=== PATIENT | female | born 1970 | race Two or more races ===

== ENCOUNTER 2016-06-30 12:22 | Emergency (ER) | payer MEDICAID ==
[~2016-06-30] VITALS: Ht 162.6 cm; Wt 117.1 kg
[2016-06-30 17:13] LABS: PLATELET COUNT 321 x10^3mcL (130-400)
[2016-06-30 17:27] LABS: microscopic required? YES; urine erythrocyte 3+ (NEGATIVE)
[2016-06-30 17:28] LABS: BASOPHIL % 2.2 % (0-2)
[2016-06-30 18:59] VITALS: BP 147/101
== END 2016-06-30 18:59 | disposition home or self-care (01) ==
LOC: ED 12:22
PROVIDERS: Emergency Medicine
DX: O02.0 Blighted ovum and nonhydatidiform mole (principal); E11.9 Type 2 diabetes mellitus without complications
CPT/HCPCS: 82962; Q0092

== ENCOUNTER 2017-06-27 07:10 | Emergency (ER) | payer MEDICAID ==
[~2017-06-27] VITALS: Ht 162.6 cm; Wt 119.3 kg
[2017-06-27 07:17] VITALS: BP 143/84; Ht 162.6 cm; Wt 119.3 kg
== END 2017-06-27 09:14 | disposition home or self-care (01) ==
LOC: ED 07:10
DX: M54.5 Low back pain (principal); K21.9 Gastro-esophageal reflux disease without esophagitis; E11.9 Type 2 diabetes mellitus without complications; I10 Essential (primary) hypertension
CPT/HCPCS: 82962

== ENCOUNTER 2020-03-26 15:43 | Emergency (ER) | payer MEDICAID ==
[~2020-03-26] VITALS: Ht 162.6 cm; Wt 108.4 kg
[2020-03-26 15:55] VITALS: Ht 162.6 cm; Wt 108.4 kg
[2020-03-26 18:52] VITALS: BP 129/78
== END 2020-03-26 18:52 | disposition home or self-care (01) ==
LOC: ED 15:43
DX: L02.215 Cutaneous abscess of perineum (principal); E11.9 Type 2 diabetes mellitus without complications
CPT/HCPCS: J2001

== ENCOUNTER 2020-03-29 14:58 | Emergency (ER) | payer MEDICAID ==
[~2020-03-29] VITALS: Ht 165.1 cm; Wt 108.9 kg
[2020-03-29 15:02] VITALS: BP 159/78; Ht 165.1 cm; Wt 108.9 kg
== END 2020-03-29 16:28 | disposition home or self-care (01) ==
LOC: ED 14:58
DX: N76.4 Abscess of vulva (principal); E11.9 Type 2 diabetes mellitus without complications